=== PATIENT | female | born 1955 | race Caucasian/White ===

== ENCOUNTER 2024-01-13 10:47 | Day surgery (SDC) | payer OTHER, MEDICARE ==
[2024-01-12 12:36] LABS: Absolute Eosinophils 0.1 K/uL (0-0.5); Absolute Lymphocytes (CBC) 2.2 K/uL (0.7-4.9); Absolute Monocytes 0.4 K/uL (0.1-1.3); Absolute Neutrophil 3.1 K/uL (1.8-8.0); Basophils % 0.5 % (0-1.3); Eosinophils % 2.1 % (0-4.4); Hematocrit 44.7 % (36.0-45.0); Hemoglobin 14.8 g/dL (12.0-15.0); Lymphocytes % 37.9 % (15.3-44.8); MCH 30.7 pg (27.0-35.0); MCHC 33.1 g/dL (32.0-36.0); MCV 92.7 fL (80-100); MPV 7.3 fL (7.6-11.3); Monocytes % 6.6 % (3.3-12.3); Neutrophils % 52.9 % (41.7-73.7); Platelets 291 thou/uL (152-406); RBC Red Blood Cell Count 4.82 M/uL (3.86-4.86); Red Cell Distribution Width 12.8 % (12.1-15.2)
[2024-01-12 13:06] LABS: Anion Gap 5.2 mEq/L (5.0-15.0); Potassium 4.2 mEq/L (3.5-5.1)
[2024-01-13] MEDS ORDERED: BUPIVACAINE 0.25% PF 30 ML VIAL ONE (11:08)
[2024-01-13] MEDS: NA CHLORIDE 0.9% 1,000 ML ONE (11:10)
[2024-01-13] MEDS ORDERED: propofoL 200 MG/20 ML VIAL IV ONE (11:33)
[2024-01-13] MEDS ORDERED: dexAMETHasone 10 MG/ML VIAL ONE (11:33)
[2024-01-13] MEDS ORDERED: KETOROLAC 30 MG/ML INJ ONE (11:33)
[2024-01-13] MEDS ORDERED: ONDANSETRON 4 MG/2 ML VIAL ONE (11:33)
[2024-01-13] MEDS ORDERED: FENTANYL CITR 100 MCG/2 ML ONE (11:34)
[2024-01-13] MEDS ORDERED: MIDAZOLAM HCL 2 MG/2 ML INJ ONE (11:34)
[2024-01-13] MEDS ORDERED: LIDOCAINE 2% MPF 5 ML VIAL ONE (11:34)
[2024-01-13] MEDS: CEFAZOLIN SODIUM 2 GM/VIAL ONE (11:45)
[2024-01-13] MEDS ORDERED: NS 0.9% VIAL 20 ML ONE (11:56)
[2024-01-13] MEDS ORDERED: NS 0.9% VIAL 10 ML ONE (12:03)
[2024-01-13] MEDS: LIDOCAINE HCL/EPINEPHRINE 20 ML MDV ONE (12:12)
[2024-01-13] MEDS ORDERED: LIDOCAINE HCL/EPINEPHRINE 20 ML MDV ONE (12:32)
--- NOTE | 2024-01-13 12:36 | P.OP ---
Preoperative diagnosis: Multiple (4) Upper Neck, and 1 Lower Back Cyst Postoperative diagnosis: Multiple (4) Upper Neck, and 1 Lower Back Cyst Primary procedure: Excision of Multiple (4) Upper Neck, and 1 Lower Back Cyst Anesthesia: GETA + Local Estimated blood loss: <2cc Specimen: Multiple (4) Upper Neck, and 1 Lower Back Cyst Findings: Cysts ranged from 0.4 - 1cm in size Complications: None Transferred to: Recovery Room Condition: Good
[2024-01-13 16:35] VITALS: BP 140/69; TEMP 97.3; O2SAT 97
--- NOTE | 2024-01-13 22:59 | OP ---
Date of Procedure: 01/13/2024 Surgeon: Chiki Valles MD, Preoperative Diagnosis: Multiple, #4 upper neck and 1 lower back cyst. Postoperative Diagnosis: Multiple, #4 upper neck and 1 lower back cyst. Procedure Performed: Excision of multiple #4 upper neck and #1 lower back cyst. Anesthesia: General endotracheal plus local with 1% lidocaine with epinephrine. Estimated Blood Loss: Less than 2 cc. Specimens: Multiple, #4 cyst of the upper neck consistent with sebaceous cysts and 1 lower back seba ceous cyst. Findings: Cyst ranged from approximately 0.4 cm to 1 cm in size. Complications: None. Disposition: The patient was transferred to recovery room in good condition. Procedure In Detail: After informed consent was obtained, patient was brought to the operating room, prepped and draped in the usual sterile fashion. After adequate anesthesia was achieved, I made ell iptical incisions around 4 upper neck cysts, 1 superior, 1 middle, 1 right, and 1 in the left posteri or neck cyst and 1 lower back cyst. The cysts were taken out at its entirety using combination of sh mamadou dissection and electrocautery, taken down in their entirety without evidence of infection. The a kaden was copiously irrigated. Hemostasis was achieved with electrocautery. All incisions were then c losed with a 4-0 Monocryl in a running fashion with Dermabond placed over top. The patient tolerated the procedure well without incident or complication, transferred to the PACU in good condition. All counts were correct at the end of the c ase. JOSESITO/MARCIAL Voice ID: [id number] Report ID: [id number]
== END 2024-01-13 14:00 | disposition home or self-care (01) ==
LOC: OR 10:47
PROVIDERS: ATTEND Surgery
PROC: 0JB40ZZ Excision of Right Neck Subcutaneous Tissue and Fascia, Open Approach (ICD-10-PCS; 2024-01-13)
PROC: 0JB50ZZ Excision of Left Neck Subcutaneous Tissue and Fascia, Open Approach (ICD-10-PCS; 2024-01-13)
PROC: 0JB70ZZ Excision of Back Subcutaneous Tissue and Fascia, Open Approach (ICD-10-PCS; principal; 2024-01-13 12:00)
DX: L72.0 Epidermal cyst (principal)
CPT/HCPCS: 11402; 11422 ×4; 85025; 80048; 36415; 82947 ×2; 88304; A4216 ×2; J2704; J2001; J2250; J3010; J1100; J2405; J7030